=== PATIENT | female | born 1980 | race Two or more races ===

== ENCOUNTER 2018-02-26 13:12 | Emergency (ER) | payer OTHER ==
[~2018-02-26] VITALS: Ht 152.4 cm; Wt 68.0 kg
[~2018-02-26 13:12] MED LIST: FLEXERIL10 MG PO; IBUPROFEN800 MG PO; MOTRIN800 MG PO; SULFAMETHOXAZOL1 TA1 PO
[2018-02-26] MEDS ORDERED: KETO10TA2 PO (16:03)
[2018-02-26] MEDS ORDERED: NORFLEX100MG PO (16:03)
== END 2018-02-26 16:07 | disposition home or self-care (01) ==
LOC: ER 13:12
DX: M54.2 Cervicalgia (principal); M54.5 Low back pain

== ENCOUNTER 2018-10-29 11:25 | Emergency (ER) | payer OTHER ==
[~2018-10-29] VITALS: Ht 152.4 cm; Wt 75.3 kg
[~2018-10-29 11:25] MED LIST changes: +KETO10TA2 PO; +NORFLEX100MG PO
[2018-10-29] MEDS ORDERED: KETO10TA2 PO (15:17)
[2018-10-29] MEDS ORDERED: NORFLEX100MG PO (15:17)
== END 2018-10-29 15:25 | disposition home or self-care (01) ==
LOC: ER 11:25
DX: M54.5 Low back pain (principal)

== ENCOUNTER 2019-03-25 20:37 | Emergency (ER) | payer OTHER ==
[~2019-03-25] VITALS: Ht 152.4 cm; Wt 77.1 kg
[2019-03-26] MEDS ORDERED: DICLOFENAC SODI50 MG PO (06:43)
[2019-03-26] MEDS ORDERED: TRAMADOL HCL50 MG PO (06:43)
== END 2019-03-26 09:01 | disposition home or self-care (01) ==
LOC: ER 20:37
DX: N83.291 Other ovarian cyst, right side (principal); R10.31 Right lower quadrant pain

== ENCOUNTER 2021-04-06 12:41 | Emergency (ER) | payer OTHER ==
[~2021-04-06] VITALS: Ht 160 cm; Wt 68.0 kg
[~2021-04-06 12:41] MED LIST changes: +DICLOFENAC SODI50 MG PO; +TRAMADOL HCL50 MG PO
[2021-04-06] MEDS ORDERED: FLUCONAZOLE150 MG PO (14:53)
== END 2021-04-07 | disposition home or self-care (01) ==
LOC: ER 12:41
DX: B37.3 Candidiasis of vulva and vagina (principal)

== ENCOUNTER 2021-07-26 07:43 | Emergency (ER) | payer OTHER ==
[~2021-07-26] VITALS: Ht 162.6 cm; Wt 65.8 kg
[~2021-07-26 07:43] MED LIST changes: +FLUCONAZOLE150 MG PO
[2021-07-26] MEDS ORDERED: HIBICLENS118 ML TOP (09:06)
[2021-07-26] MEDS ORDERED: BACTRIM DS TAB1 EACH PO (09:06)
[2021-07-26] MEDS ORDERED: MUPIROCIN1 G1 TOP (09:06)
== END 2021-07-26 09:35 | disposition home or self-care (01) ==
LOC: ER 07:43
DX: N64.4 Mastodynia (principal)

== ENCOUNTER 2022-04-01 07:25 | Emergency (ER) | payer OTHER ==
[~2022-04-01] VITALS: Ht 152.4 cm; Wt 74.8 kg
[~2022-04-01 07:25] MED LIST changes: +BACTRIM DS TAB1 EACH PO; +HIBICLENS118 ML TOP; +MUPIROCIN1 G1 TOP
== END 2022-04-01 11:48 | disposition home or self-care (01) ==
LOC: ER 07:25
DX: U07.1 COVID-19 (principal); R11.2 Nausea with vomiting, unspecified; F12.929 Cannabis use, unspecified with intoxication, unspecified; Z88.0 Allergy status to penicillin

== ENCOUNTER 2022-08-28 09:04 | Emergency (ER) | payer OTHER ==
[~2022-08-28] VITALS: Ht 152.4 cm; Wt 72.6 kg
== END 2022-08-28 11:02 | disposition home or self-care (01) ==
LOC: ER 09:04
DX: L02.91 Cutaneous abscess, unspecified (principal)

== ENCOUNTER 2022-10-28 13:39 | Emergency (ER) | payer OTHER ==
[~2022-10-28] VITALS: Ht 152.4 cm; Wt 72.6 kg
== END 2022-10-28 17:20 | disposition home or self-care (01) ==
LOC: ER 13:39
DX: N76.4 Abscess of vulva (principal)

== ENCOUNTER 2023-09-04 13:28 | Emergency (ER) | payer OTHER ==
[~2023-09-04] VITALS: Ht 152.4 cm; Wt 72.6 kg
[2023-09-04] MEDS ORDERED: DICLOFENAC SODI75 MG PO (15:32)
== END 2023-09-04 15:42 | disposition home or self-care (01) ==
LOC: ER 13:29
DX: M25.531 Pain in right wrist (principal)